=== PATIENT | female | born 1950 | race Caucasian/White ===

== ENCOUNTER 2020-05-03 13:20 | Emergency (ER) | payer OTHER ==
[2020-05-03] MEDS ORDERED: METOPROLOL TARTRATE 5 MG/5 ML INJ IV ONE ×2 (14:56→15:10)
[2020-05-03] MEDS ORDERED: ENOXAPARIN 100 MG/ML SYR SQ ONE (14:57)
[2020-05-03] MEDS ORDERED: ENOXAPARIN 30 MG/0.3 ML SQ ONE (14:57)
[2020-05-03 15:01] LABS: Absolute Lymphocytes (CBC) 1.1 K/uL (0.7-4.9); Hematocrit 41.2 % (36.0-45.0); Lymphocytes % 13.8 % (15.3-44.8); MPV 8.6 fL (7.6-11.3); RBC Red Blood Cell Count 4.88 M/uL (3.86-4.86)
[2020-05-03 15:19] LABS: Protime INR 1.2
[2020-05-03 15:23] LABS: ALT/SGPT 21 U/L (12-78); AST/SGOT 32 U/L (15-37); Albumin 2.9 g/dL (3.4-5.0); Alkaline Phosphatase 124 U/L (45-117); BUN Blood Urea Nitrogen 60 mg/dL (7-18); Bicarbonate 25 mmol/L (21-32); Bilirubin Direct 0.2 mg/dL (0-0.2); Bilirubin Total 0.4 mg/dL (0.2-1.0); Glucose Level 137 mg/dL (74-106); Lipase 180 U/L (73-393); Magnesium 1.8 mg/dL (1.8-2.4); NT PRO-BNP 167 pg/mL (<125); Potassium 4.3 mmol/L (3.5-5.1); Protein, Total 8.5 g/dL (6.4-8.2); Sodium Level 141 mmol/L (136-145); Troponin (Emerg Dept Use Only) < 0.02 ng/mL (0.0-0.045)
[2020-05-03] MEDS ORDERED: NA CHLORIDE 0.9% 500 ML ONE (15:30)
--- OUTSIDE RECORDS SUMMARY | 2020-05-03 15:39 | XMS REPORT | Clinical Summary ---
:1950 Author Organization [facility] Address [address] [place] [address] Care Team Providers Name Role Phone Derick Wilson MD Primary Care Provider Allergies Active Allergy Reactions Severity Noted Date Comments Aspirin 09/26/2016 Medications Medication Sig Dispensed Refills Start Date End Date Status gemfibrozil Take 600 mg 0 Active (LOPID) 600 MG by mouth tablet daily. simvastatin Take 80 mg 0 09/09/2016 Active (ZOCOR) 80 MG by mouth tablet daily. metoprolol Take 50 mg 0 09/04/2016 Active tartrate by mouth 2 (LOPRESSOR) 50 MG (two) times tablet a day. metFORMIN Take 850 mg 0 Active (GLUCOPHAGE) 850 by mouth 2 mg tablet (two) times a day with meals. amLODIPine Take 5 mg by 12 08/20/2019 Activ e (NORVASC) 5 mg mouth daily. tablet albuterol (PROAIR Inhale 2 0 Ac tive HFA) 90 puffs every mcg/actuation 6 (six) inhaler hours as needed for wheezing. XARELTO 20 mg TAKE 1 30 tablet 0 10/13/2019 Activ e tabletIndications: TABLET BY Atrial MOUTH ONCE fibrillation, DAILY unspecified type (HCC) lisinopriL-hydroch Take 1 90 tablet 0 02/19/2020 Active lorothiazide tablet by (PRINZIDE) 20-25 mouth once mg per daily tabletIndications: Essential hypertension Multaq 400 mg Take 1 60 tablet 0 02/24/2020 Activ e tabletIndications: tablet by Paroxysmal atrial mouth twice fibrillation (HCC) daily VENTOLIN HFA 90 2 puffs as 0 04/12/2017 Di scontinued mcg/actuation needed. 9 (Thera py inhaler completed) lisinopril-hydroch TAKE ONE 90 tablet 0 03/18/2018 Discontinued lorothiazide TABLET BY 9 (Reorde r) (PRINZIDE,ZESTORET MOUTH ONCE IC) 20-25 mg per DAILY tabletIndications: Essential hypertension XARELTO 20 mg TAKE ONE 30 tablet 6 06/18/2018 Disco ntinued tabletIndications: TABLET BY 9 Atrial MOUTH ONCE fibrillation, DAILY unspecified type (HCC) dronedarone Take 1 180 tablet 3 10/08/2018 Discon tinued (MULTAQ) 400 mg tablet (400 0 tabletIndications: mg total) by Paroxysmal atrial mouth 2 fibrillation (HCC) (two) times a day. lisinopril-hydroch TAKE 1 90 tablet 0 04/18/2019 Discontinued lorothiazide TABLET BY 9 (Sepidehe r) (PRINZIDE,ZESTORET MOUTH ONCE IC) 20-25 mg per DAILY tabletIndications: Essential hypertension lisinopril-hydroch TAKE 1 90 tablet 0 07/23/2019 Discontinued lorothiazide TABLET BY 9 (Duplic ate order) (PRINZIDE,ZESTORET MOUTH ONCE IC) 20-25 mg per DAILY tabletIndications: Essential hypertension lisinopril-hydroch Take 1 90 tablet 0 10/14/2019 Discontinued lorothiazide tablet by 0 (PRINZIDE) 20-25 mouth daily. mg per tabletIndications: Essential hypertension MULTAQ 400 mg TAKE 1 60 tablet 0 11/10/2019 Disco ntinued tabletIndications: TABLET BY 0 Paroxysmal atrial MOUTH TWICE fibrillation (HCC) DAILY MULTAQ 400 mg TAKE 1 60 tablet 0 12/23/2019 Disco ntinued tabletIndications: TABLET BY 0 Paroxysmal atrial MOUTH TWICE fibrillation (HCC) DAILY Multaq 400 mg Take 1 60 tablet 0 01/19/2020 Disco ntinued tabletIndications: tablet by 0 Paroxysmal atrial mouth twice fibrillation (HCC) daily lisinopriL-hydroch Take 1 90 tablet 0 01/19/2020 Discontinued lorothiazide tablet by 0 (PRINZIDE) 20-25 mouth once mg per daily tabletIndications: Essential hypertension Multaq 400 mg Take 1 60 tablet 0 02/19/2020 Disco ntinued tabletIndications: tablet by 0 Paroxysmal atrial mouth twice fibrillation (HCC) daily Active Problems Problem Noted Date Essential hypertension 09/26/2016 Atrial fibrillation 09/20/2016 Encounters Date Type Specialty Care Team Description 02/24/2020 Refill Cardiology Jb Phillip MD Med Refi ll 02/19/2020 Refill Cardiology Jb Phillip MD Med Refi ll 01/19/2020 Refill Cardiology Jb Phillip MD Med Refi ll 01/17/2020 Refill Cardiology Jb Phillip MD Med Refi ll 12/23/2019 Refill Cardiology Jb Phillip MD Med Refi ll 11/10/2019 Orders Only Cardiology Jaden Smith MA Paroxysmal atr ial fibrillation (HCC) 11/10/2019 Refill Cardiology Jb Phillip MD Med Refi ll 10/13/2019 Refill Cardiology Jb Phillip MD Med Refi ll 10/13/2019 Refill Cardiology Jb Phillip MD Med Refi ll 10/07/2019 Office Visit Cardiology Jb Phillip MD Paroxysm al atrial fibrillation (HCC) (Primary Dx); Essential hyper tension 07/23/2019 Refill Cardiology Jb Phillip MD Med Refi ll after 05/03/2019 Social History Tobacco Use Types Packs/Day Years Used Date Never Smoker Smokeless Tobacco: Never Used Alcohol Use Drinks/Week oz/Week Comments No Sex Assigned at Date Recorded Not on file Job Start Date Occupation Industry Not on file Not on file Not on file Travel History Travel Start Travel End No recent travel history available. Last Filed Vital Signs Vital Sign Reading Time Taken Comments Blood Pressure 162/76 10/07/2019 9:04 AM [facility] [employer] Pulse 53 10/07/2019 9:04 AM [employer] [employer] Temperature - - Respiratory Rate - - Oxygen Saturation - - Inhaled Oxygen Concentration - - Weight 120 kg (265 lb) 10/07/2019 9:04 AM [employer] [employer] Height 154.9 cm (5' 1") 10/07/2019 9:04 AM [facility] [employer] Body Mass Index 50.07 10/07/2019 9:04 AM [facility] Plan of Treatment Date Type Specialty Care Team Description 10/05/2020 Office Visit Cardiology Jb Phillip MD [address] [facility] [address] [place], [place] [address] [phone] Health Maintenance Due Date Last Done Comments BREAST CANCER SCREENING 01/29/2000 COLONOSCOPY SCREENING 01/29/2000 SHINGLES VACCINES (#1) 01/29/2000 65+ PNEUMOCOCCAL VACCINE (1 of 2 - PCV13) 2015 INFLUENZA VACCINE 05/29/2020 Procedures Procedure Name Priority Date/Time Associated Diagnosis Comme nts ECG 12-LEAD Routine 10/07/2019 9:06 AM Paroxysmal atrial Res ults for this [facility] fibrillation (HC C) procedure are in Essential hypertension the r esults section. after 05/03/2019 Results ECG 12 lead (10/07/2019 9:06 AM [facility] [employer]) Pathologist Sig nature Ventricular rate 53 [facility] Atrial rate 52 [facility] QRSD interval 82 [facility] QT interval 452 [facility] QTC interval 424 [facility] QRS axis 1 28 [facility] T wave axis 69 [facility] EKG impression Sinus bradycardia-Low [facility] voltage QRS-Abnormal ECG-In automated comparison with ECG of 08-OCT-2018 09:06,-No significant change was found- Specimen Narrative Performed At This result has an attachment that is no t available. Performing Organization Address City/State/Zipcode Phone Number [facility] [address] [place] [address] after 05/03/2019 Insurance Payer Benefit Plan / Subscriber ID Effective Dates Phone Addre ss Type Group CIGNA CIGNA OPEN xxxxxxxxx 2017-Present [facility] O ACCESS/NETWORK CVCP CVCP AETNA xxxxxxxxxx 2015-Present [address], [address] [place] [address] [phone] (Home) [place], [place] [phone] (Work) Advance Directives For more information, please contact: [phone] Type Date Recorded Patient Sales Service Rep Explanati on Advance Directives, Living Will and Medical Power of Patient Service Associate
[2020-05-03 16:06] LABS: Blood Morphology Comment NOTED (NOT SEEN); Platelet Estimate INCR
--- NOTE | 2020-05-03 17:11 | RAD REPORT ---
EXAM DESCRIPTION: RAD - Chest Single View - 05/03/2020 4:49 pm CLINICAL HISTORY: SOB COMPARISON: July 2013 TECHNIQUE: AP portable chest image was obtained 05/03/2020 4:49 pm . FINDINGS: Lung volumes are low. Interstitial pattern is prominent. This is partly due to large body habitus and shallow inspiration. A mild interstitial edema or infiltrate would also be a consideratio n. Significant failure or volume overload are doubtful. Heart size and vasculature are within normal limits. Trachea is midline. No measurable pleural effusion and no pneumothorax. No acute bony abnorma lity seen. No acute aortic findings suspected. IMPRESSION: Limited shallow inspiration film showing interstitial opacification throughout the lung mcnair. No focal mass or consolidation. Lung parenchymal findings are partly due to the large body habitus and shallow inspiration affects. A mild interstitial edema or infiltrate should also be considered.
--- NOTE | 2020-05-03 17:33 | ER ---
Nurse's Notes [facility] Name: Alissa Carmona Age: 70 yrs Sex: Female : 1950 Arrival Date: 05/03/2020 Time: 13:21 Bed 25 Private MD: Diagnosis: Atrial fibrillation and flutter-with rapid ventricular response;Patient's noncompliance with medical treatment and regimen Presentation: 05/03 13:31 Chief complaint: Patient states: generalized weakness, cough, SOB, diarrhea since Sun. sv Coronavirus screen: Surgical mask placed on patient. Patient moved to private room, placed in contact and droplet isolation with eye protection until further assessment. Patient reports a cough. Patient reports shortness of breath or difficulty breathing. Patient denies measured and/or subjective temperature greater than 100.4F prior to today's visit. Patient denies travel on a cruise ship or to a country the [facility] currently lists as an affected area. Patient denies contact with known and/or suspected case of COVID-19. Ebola Screen: No symptoms or risks identified at this time. 13:31 Method Of Arrival: Wheelchair sv 13:34 Initial Sepsis Screen: Does the patient meet any 2 criteria? No. Patient's initial sv sepsis screen is negative. Does the patient have a suspected source of infection? No. Patient's initial sepsis screen is negative. Risk Assessment: Do you want to hurt yourself or someone else? Patient reports no desire to harm self or others. Onset of symptoms was April 28, 2020. 13:34 Acuity: SHABANA 2 sv Triage Assessment: 14:05 General: Appears distressed, comfortable, Behavior is calm, cooperative. ls4 14:05 Neuro: No deficits noted. Cardiovascular: Denies chest pain, diaphoresis, fatigue, ls4 lightheadedness, nausea, palpitations, syncope, vomiting, Capillary refill < 3 seconds Patient's skin is warm and dry. Rhythm is atrial fibrillation with rapid ventricular response. Respiratory: Airway is patent Respiratory effort is even, labored, Respiratory pattern is tachypnea Denies cough. GI: No deficits noted. No signs and/or symptoms were reported involving the gastrointestinal system. : No deficits noted. No signs and/or symptoms were reported regarding the genitourinary system. Historical: - Allergies: 13:34 Iodine; sv 13:34 Aspirin; sv - PMHx: 13:34 Hypertension; Atrial Fib; High Cholesterol; sv - PSHx: 13:34 Cholecystectomy; Tubal ligation; sv - Immunization history:: Adult Immunizations up to date, Flu vaccine is not up to date. - Social history:: Smoking status: Patient denies any tobacco usage or history of. Screenin:05 Abuse screen: Denies threats or abuse. Denies injuries from another. Nutritional ls4 screening: No deficits noted. Tuberculosis screening: No symptoms or risk factors identified. Fall Risk None identified. Assessment: 14:05 Reassessment: Patient and/or family updated on plan of care and expected duration. Pain ls4 level reassessed. Patient is alert, oriented x 3, equal unlabored respirations, skin warm/dry/pink. held 2nd dose of lopressor for hypotension, Mae POST HOLE DIGGING MACHINE OPERATOR notified, bolus given. Patient states symptoms have improved. Pain: Complains of pain in coccyx and gluteal cleft Pain currently is 4 out of 10 on a pain scale. Is chronic. Neuro: Level of Consciousness is awake, alert, obeys commands, Oriented to person, place, time, situation. Cardiovascular: Denies chest pain, diaphoresis, lightheadedness, nausea, palpitations, shortness of breath, syncope, vomiting, Capillary refill < 3 seconds Clubbing of nail beds is absent Patient's skin is warm and dry. Pulses are 2+ in right radial artery, right dorsalis pedis artery, left radial artery and left dorsalis pedis artery. Respiratory: Airway is patent Respiratory effort is labored, shallow, Respiratory pattern is tachypnea Breath sounds are diminished bilaterally. Vital Signs: 13:34 BP 147 / 121; Pulse 83; Resp 20; Temp 98.5(TE); Pulse Ox 90% on R/A; Weight 113.4 kg; sv Height 5 ft. 1 in. (154.94 cm); 14:30 BP 112 / 55; Pulse 148; Resp 22; Pulse Ox 97% on 2 lpm NC; Pain 0/10; ls4 15:00 BP 92 / 61; Pulse 127; Resp 22; Pulse Ox 97% on 2 lpm NC; ls4 15:30 BP 105 / 87; Pulse 109; Resp 18; Pulse Ox 99% on R/A; ls4 15:56 BP 107 / 66; Pulse 115; Resp 19; Pulse Ox 98% on 2 lpm NC; Pain 3/10; ls4 17:00 BP 112 / 68; Pulse 108; Resp 18; Pulse Ox 98% on R/A; ls4 18:00 BP 111 / 60; Pulse 119; Resp 18; Pulse Ox 98% on R/A; ls4 13:34 Body Mass Index 47.24 (113.40 kg, 154.94 cm) sv 13:34 Pt placed on O2 \T\ 2L per NC. O2 sat up to 95%. sv ED Course: 13:21 Patient arrived in ED. as 13:32 Arm band placed on. sv 13:37 Triage completed. sv 14:09 No provider procedures requiring assistance completed. Inserted saline lock: 20 gauge ls4 in left antecubital area, using aseptic technique. Blood collected. 14:09 Initial lab(s) drawn, by me, sent to lab. EKG done, by ED staff, reviewed by Kranthi Irving MD. Oxygen administration via nasal cannula \T\ 2L/min. 14:14 Urszula Wing RN is Primary Nurse. ls4 14:22 Walker Wall NP is PHCP. pm1 14:22 Kranthi Irving MD is Attending Physician. pm1 15:45 Manual Differential Sent. ls4 16:50 Chest Single View XRAY In Process Unspecified. EDMS 18:01 IV discontinued, intact, bleeding controlled, No redness/swelling at site. Pressure ls4 dressing applied. Administered Medications: 14:51 Drug: Lopressor 5 mg Route: IVP; Site: left antecubital; ls4 14:59 Follow up: Response: No adverse reaction ls4 14:51 Drug: Lovenox 115 mg Route: Sub-Q; Site: left lower abdomen; ls4 15:02 Follow up: Response: No adverse reaction ls4 15:32 Drug: NS 0.9% 250 ml Route: IV; Rate: bolus; Site: left antecubital; ls4 Outcome: 18:10 AMA AMA form signed ls4 18:10 Condition: risks discussed with pt and with pt daughter via telephone regarding risks ls4 of leaving ama. pt states she understands, signed form and states she wishes to go home and will return if needed. 18:10 Discharge instructions given to patient, Instructed on discharge instructions, Demonstrated understanding of instructions, follow-up care, medications. 18:20 Patient left the ED. ls4 Signatures: Dispatcher [employer] Merly Mcfarland RN RN sv Martinez, Amelia as Marinas, Patrick, NP POST HOLE DIGGING MACHINE OPERATOR pm1 Urszula Wing RN RN ls4 Corrections: (The following items were deleted from the chart) 13:49 13:34 BP 147 / 121; Pulse 83bpm; Resp 20bpm; Pulse Ox 90% RA; Temp 98.5F Temporal; sv 113.4 kg; Height 5 ft. 1 in.; BMI: 47.2; sv
--- NOTE | 2020-05-03 17:33 | EDPHYS ---
Physician Documentation [facility] Name: Alissa Carmona Age: 70 yrs Sex: Female : 1950 Arrival Date: 05/03/2020 Time: 13:21 Bed 25 Private MD: ED Physician Kranthi Irving HPI: 05/03 14:29 This 70 yrs old Female presents to ER via Wheelchair with complaints of pm1 Weakness, Shortness Of Breath. 14:29 The patient has shortness of breath at rest. Onset: The symptoms/episode began/occurred pm1 5 day(s) ago. Duration: The symptoms on and off. The patient's shortness of breath is aggravated by Noncompliance with medications. Patient has not taken most of her blood pressure medications for at least the past three days. Patient has sporadically taken some blood pressure medications. Believes that she took her Multaq yesterday morning. Has not taken her Xarelto for at least the past three days, is alleviated by nothing. Associated signs and symptoms: Pertinent negatives: chest pain, non-productive cough, productive cough, fever, nausea, vomiting. Severity of symptoms: in the emergency department the symptoms have improved. The patient has been recently seen by a physician: the patient's primary care provider, Dr. Wilson with similar presenting complaints, and was sent to the [facility] Emergency Department for further evaluation. Historical: - Allergies: 13:34 Iodine; sv 13:34 Aspirin; sv - PMHx: 13:34 Hypertension; Atrial Fib; High Cholesterol; sv - PSHx: 13:34 Cholecystectomy; Tubal ligation; sv - Immunization history:: Adult Immunizations up to date, Flu vaccine is not up to date. - Social history:: Smoking status: Patient denies any tobacco usage or history of. ROS: 14:29 Constitutional: Negative for fever, chills, and weight loss, ENT: Negative for injury, pm1 pain, and discharge, Neck: Negative for injury, pain, and swelling, Cardiovascular: Negative for chest pain, palpitations, and edema. 14:29 Abdomen/GI: Negative for abdominal pain, nausea, vomiting, diarrhea, and constipation, Back: Negative for injury and pain, : Negative for injury, bleeding, discharge, and swelling, MS/Extremity: Negative for injury and deformity, Skin: Negative for injury, rash, and discoloration. 14:29 Respiratory: Positive for shortness of breath, Negative for cough, wheezing. 14:29 Neuro: Positive for Generalized weakness. Exam: 14:29 Constitutional: This is a well developed, well nourished patient who is awake, alert, pm1 and in no acute distress. Head/Face: Normocephalic, atraumatic. Neck: Trachea midline, no thyromegaly or masses palpated, and no cervical lymphadenopathy. Supple, full range of motion without nuchal rigidity, or vertebral point tenderness. No Meningismus. Chest/axilla: Normal chest wall appearance and motion. Nontender with no deformity. No lesions are appreciated. 14:29 Back: No spinal tenderness. No costovertebral tenderness. Full range of motion. Skin: Warm, dry with normal turgor. Normal color with no rashes, no lesions, and no evidence of cellulitis. MS/ Extremity: Pulses equal, no cyanosis. Neurovascular intact. Full, normal range of motion. 14:29 Cardiovascular: Rate: tachycardic, Rhythm: irregular, Pulses: no pulse deficits are appreciated, Edema: is not appreciated. 14:29 Respiratory: Exam negative for acute changes, respiratory distress, shortness of breath, wheezing. 14:29 Abdomen/GI: Inspection: obese Palpation: abdomen is soft and non-tender, in all quadrants, mass, is not appreciated, rebound tenderness, is not appreciated. 14:29 Neuro: Exam negative for acute changes, Orientation: is normal, Mentation: is normal, Motor: is normal, moves all fours. Vital Signs: 13:34 BP 147 / 121; Pulse 83; Resp 20; Temp 98.5(TE); Pulse Ox 90% on R/A; Weight 113.4 kg; sv Height 5 ft. 1 in. (154.94 cm); 14:30 BP 112 / 55; Pulse 148; Resp 22; Pulse Ox 97% on 2 lpm NC; Pain 0/10; ls4 15:00 BP 92 / 61; Pulse 127; Resp 22; Pulse Ox 97% on 2 lpm NC; ls4 15:30 BP 105 / 87; Pulse 109; Resp 18; Pulse Ox 99% on R/A; ls4 15:56 BP 107 / 66; Pulse 115; Resp 19; Pulse Ox 98% on 2 lpm NC; Pain 3/10; ls4 17:00 BP 112 / 68; Pulse 108; Resp 18; Pulse Ox 98% on R/A; ls4 18:00 BP 111 / 60; Pulse 119; Resp 18; Pulse Ox 98% on R/A; ls4 13:34 Body Mass Index 47.24 (113.40 kg, 154.94 cm) sv 13:34 Pt placed on O2 \T\ 2L per NC. O2 sat up to 95%. sv MDM: 14:22 Patient medically screened. pm1 14:27 Data reviewed: vital signs. pm1 16:57 Counseling: I had a detailed discussion with the patient and/or guardian regarding: the pm1 historical points, exam findings, and any diagnostic results supporting the discharge/admit diagnosis, lab results, radiology results, the need for further work-up and treatment in the hospital. 16:57 Refusal of service: The patient/guardian displays adequate decision making capability pm1 and despite a detailed discussion of alternatives, benefits, risks, and consequences refuses: Admission to the hospital for further work-up and treatment, all lab tests, all X-rays. 17:28 Refusal of service: The patient/guardian displays adequate decision making capability pm1 and despite a detailed discussion of alternatives, benefits, risks, and consequences refuses: Admission to the hospital for further work-up and treatment, patient talked with daughter and she still does not want to stay in the hospital. I talked with the daughter and she said that she will do her best to make sure the patient takes all her medications. 18:00 Physician consultation: A Steve LOVE was called at 16:50, was contacted at 18:00, pm1 regarding admission, patient's condition, Informed him that the patient does not want to stay in the hospital despite multiple attempts by me to convince her of benefits and risks. Informed him that I had the her daughter talk to her and the patient still does not want to stay. Informed him that her atrial fibrillation with RVR was due to lack of medication compliance. He would like me to tell the patient that he wants to see her tomorrow and that he has telemedicine available to see her. 18:05 ED course: Discussed with patient and her brother who was picking her up that if she pm1 does not want to stay and go against medical advice that she needs to see Dr. Wilson tomorrow. Informed her that Dr. Wilson has telemedicine available for her. She agreed to see call him tomorrow. 05/03 14:14 Order name: BMP; Complete Time: 15:[address] [facility] 05/03 14:14 Order name: CBC with Diff; Complete Time: 16:09 4 05/03 14:14 Order name: Hepatic Function; Complete Time: 15:28 4 05/03 14:14 Order name: Lipase; Complete Time: 15:[address] [facility] 05/03 14:14 Order name: Magnesium; Complete Time: 15:28 4 05/03 14:14 Order name: NT PRO-BNP; Complete Time: 15:28 4 05/03 14:14 Order name: PT-INR; Complete Time: 15:[address] [facility] 05/03 14:14 Order name: Ptt, Activated; Complete Time: 15:[address] [facility] 05/03 14:14 Order name: Troponin (emerg Dept Use Only); Complete Time: 15:[address] [facility] 05/03 14:54 Order name: Thyroid Stimulating Hormone; Complete Time: 15:28 EDMS 05/03 14:14 Order name: EKG; Complete Time: 14:[address] [facility] 05/03 14:14 Order name: Cardiac monitoring; Complete Time: 16:[address] [facility] 05/03 14:14 Order name: EKG - Nurse/Tech; Complete Time: 16:[address] [facility] 05/03 14:14 Order name: IV Saline Lock; Complete Time: 16:[address] [facility] 05/03 14:14 Order name: Labs collected and sent; Complete Time: 16:[address] [facility] 05/03 14:14 Order name: O2 Per Protocol; Complete Time: 16:[address] [facility] 05/03 14:14 Order name: O2 Sat Monitoring [facility] 05/03 15:17 Order name: Manual Differential; Complete Time: 16:09 EDMS 05/03 16:10 Order name: Chest Single View XRAY; Complete Time: 17:16 pm1 Administered Medications: 14:51 Drug: Lopressor 5 mg Route: IVP; Site: left antecubital; ls4 14:59 Follow up: Response: No adverse reaction ls4 14:51 Drug: Lovenox 115 mg Route: Sub-Q; Site: left lower abdomen; ls4 15:02 Follow up: Response: No adverse reaction ls4 15:32 Drug: NS 0.9% 250 ml Route: IV; Rate: bolus; Site: left antecubital; ls4 Disposition: 20:58 Co-signature as Attending Physician, Kranthi Irving MD I agree with the assessment and yumiko plan of care. Disposition: 05/03/20 17:32 Patient has left against medical advice. Impression: Atrial fibrillation and flutter - with rapid ventricular response, Patient's noncompliance with medical treatment and regimen. - Patients states they are going to Home. - Condition is Stable. - Discharge Instructions: Atrial Fibrillation. Follow up: Emergency Department; When: As needed; Reason: Worsening of condition. Follow up: Private Physician; When: Upon discharge from the Emergency Department; Reason: Recheck today's complaints, Continuance of care, Re-evaluation by your physician. - Problem is new. - Symptoms have improved. Signatures: Dispatcher [employer] EDMerly Angel, Kranthi Hdez RN, MD MD cha Marinas, Patrick, VARNISHING UNIT OPERATOR VARNISHING UNIT OPERATOR pm1 Urszula Wing RN RN ls4 Corrections: (The following items were deleted from the chart) 14:34 14:15 D-DIMER+COAG.LAB.BRZ ordered. EDMS EDMS 14:35 14:15 CKMB+C.LAB.BRZ ordered. EDDE EDMS 14:35 14:15 CREATINE PHOSPHOKINASE+C.LAB.BRZ ordered. EDDE EDMS 14:54 14:24 THYROID STIMULAT HORMONE+C.LAB.BRZ ordered. EDDE EDMS 18:13 18:00 Physician consultation: Junaid Wilson MD was called at 16:50, was contacted at 18:00, pm1 regarding admission, patient's condition, Informed him that the patient does not want to stay in the hospital despite multiple attempts by me to convince her of benefits and risks. Informed him that I had the her daughter talk to her and the patient still does not want to stay. He would like me to tell the patient that he wants to see her tomorrow and that he has telemedicine available to see her, pm1 18:20 17:32 05/03/2020 17:32 Patients has left against medical advice. Impression: Atrial ls4 fibrillation and flutter - with rapid ventricular response; Patient's noncompliance with medical treatment and regimen. Patient states they are going to Home. Condition is Stable. Follow up: Emergency Department; When: As needed; Reason: Worsening of condition. Follow up: Private Physician; When: Upon discharge from the Emergency Department; Reason: Recheck today's complaints, Continuance of care, Re-evaluation by your physician. Problem is new. Symptoms have improved. pm1
[2020-05-03 18:28] VITALS: TEMP 98.5
[2020-05-03 18:32] VITALS: BP 107/66; O2SAT 98
--- NOTE | 2020-05-04 10:57 | EKG ---
Test Date: 2020-05-03 Test Time: 14:27:04 Twisting Frame Changer: JENNIFER MEASUREMENT RESULTS: Intervals: Rate: 149 CO: QRSD: 78 QT: 282 QTc: 444 [place]: P: CO: QRS: -41 T: 73 INTERPRETIVE STATEMENTS: Atrial fibrillation with rapid ventricular response with premature ventricular or aberrantly conducted complexes Left axis deviation Abnormal ECG Compared to ECG 08/14/2013 14:03:28 Ventricular premature complex(es) now present Left-axis deviation now present Sinus rhythm no longer present Electronically Signed On 05-04-20 10:54:10 CDT by Mesfin Lopez
== END 2020-05-03 18:20 | disposition left against medical advice (07) ==
LOC: ER 13:20
DX: I48.91 Unspecified atrial fibrillation (principal); I48.92 Unspecified atrial flutter; Z91.19 Patient's noncompliance with other medical treatment and regimen; I10 Essential (primary) hypertension; Z88.6 Allergy status to analgesic agent; Z88.8 Allergy status to other drugs, medicaments and biological substances
CPT/HCPCS: 93005; 85025; 80048; 36415; 83735; 85610; 80076; 85730; 84443; 84484; 83690; 83880; 71045; 96372; 96374; 99285; J1650 ×2; J7040